=== PATIENT | male | born 1970 | race Two or more races ===

== ENCOUNTER 2018-12-03 21:34 | Emergency (ER) | payer SELFPAY ==
[2018-12-03 22:08] VITALS: BP 154/98; PULSE 120; TEMP 98.4; BMI 29.0
--- NOTE | 2018-12-03 22:11 | PDOC ---
History of Present Illness - General Chief Complaint: Nausea/Vomiting Stated Complaint: SICK Time Seen by Provider: 12/03/18 22:11 Past History - Past Medical History Allergies/Adverse Reactions: Allergies Allergy/AdvReac Type Severity Reaction Status Date / Time No Known Allergies Allergy Verified 12/03/18 22:08 Home Medications: Ambulatory Orders NK [No Known Home Medication] 12/03/18 - Suicide/Smoking/Psychosocial Hx Smoking History: Never smoked Have you smoked in the past 12 months: No Information on smoking cessation initiated: No Hx Alcohol Use: No Drug/Substance Use Hx: No *Physical Exam - Vital Signs Last Vital Signs Temp Pulse Resp BP Pulse Ox 98.4 F 120 H 18 154/98 98 12/03/18 22:06 12/03/18 22:06 12/03/18 22:06 12/03/18 22:06 12/03/18 22:06 Moderate Sedation - Procedure Monitoring Vital Signs: Procedure Monitoring Vital Signs Temperature 98.4 F 12/03/18 22:06 Pulse Rate 120 H 12/03/18 22:06 Respiratory Rate 18 12/03/18 22:06 Blood Pressure 154/98 12/03/18 22:06 O2 Sat by Pulse Oximetry (%) 98 12/03/18 22:06
[2018-12-03] MEDS ORDERED: SODIUM CHLORIDE 0.9% 500 ML INFUS.BAG IV ONE (22:16)
[2018-12-03] MEDS ORDERED: ONDANSETRON 4 MG/2 ML VIAL IVPB ONE (22:17)
--- NOTE | 2018-12-03 22:22 | PDOC ---
History of Present Illness - General History Source: Patient Exam Limitations: No Limitations - History of Present Illness Initial Comments: 12/03/18 22:18 Patient is a 48 year old male with h/o etoh, right leg fx with plate and screews , c/o nausea and vomiting x 5 days. Paitent drinks but has not drank in the past 2 days due to the nausea, and vomiting, intolerate solid or liquids. Has generalized abd pain. Denies hematoemsis, PMHX: as above ALL: NKDA GENERAL/CONSTITUTIONAL: [No fever or chills. No weakness. No weight change.] HEAD, EYES, EARS, NOSE AND THROAT: [No change in vision. No ear pain or discharge. No sore throat.] CARDIOVASCULAR: [No chest pain or shortness of breath.] RESPIRATORY: [No cough, wheezing, or hemoptysis.] GASTROINTESTINAL: (+) nausea, vomiting, (-) diarrhea or constipation. No rectal bleeding.] GENITOURINARY: [No dysuria, frequency, or change in urination.] MUSCULOSKELETAL: [No joint or muscle swelling or pain. No neck or back pain.] SKIN AND BREASTS: [No rash or easy bruising.] NEUROLOGIC: [No headache, vertigo, loss of consciousness, or loss of sensation.] PSYCHIATRIC: [No depression or anxiety.] ENDOCRINE: [No increased thirst. No abnormal weight change.] HEMATOLOGIC/LYMPHATIC: [No anemia, easy bleeding, or history of blood clots.] ALLERGIC/IMMUNOLOGIC: [No hives or skin allergy. No latex allergy.] GENERAL: [The patient is awake, alert, and fully oriented, in mild distress.] HEAD: [Normal with no signs of trauma.] EYES: [Pupils equal, round and reactive to light, extraocular movements intact, sclera anicteric, conjunctiva clear.] ENT: [Ears normal, nares patent, oropharynx clear without exudates. Moist mucous membranes.] NECK: [Normal range of motion, supple without lymphadenopathy, JVD, or masses.] LUNGS: [Breath sounds equal, clear to auscultation bilaterally. No wheezes, and no crackles.] HEART: [Regular rate and rhythm, normal S1 and S2 without murmur, rub.] ABDOMEN: [Soft, tenderness epigastrum, normoactive bowel sounds. No guarding, no rebound. No masses.] EXTREMITIES: [Normal range of motion, no edema. No clubbing or cyanosis. No cords, erythema, or tenderness.] NEUROLOGICAL: [Cranial nerves II through XII grossly intact. Normal speech, normal gait, (+) tremors, ] PSYCH: [Normal mood, normal affect.] SKIN: [Warm, Dry, normal turgor, no rashes or lesions noted.] <Marek Cummings - Last Filed: 12/04/18 04:09> <Debbie Marroquin - Last Filed: 12/04/18 05:03> <Candido Anderson - Last Filed: 12/04/18 05:09> - General Chief Complaint: Nausea/Vomiting Stated Complaint: SICK Time Seen by Provider: 12/03/18 22:11 Past History - Suicide/Smoking/Psychosocial Hx Smoking History: Never smoked Have you smoked in the past 12 months: No Information on smoking cessation initiated: No Hx Alcohol Use: No Drug/Substance Use Hx: No <Marek Cummings - Last Filed: 12/04/18 04:09> <Debbie Marroquin - Last Filed: 12/04/18 05:03> <Candido Anderson - Last Filed: 12/04/18 05:09> - Past Medical History Allergies/Adverse Reactions: Allergies Allergy/AdvReac Type Severity Reaction Status Date / Time No Known Allergies Allergy Verified 12/03/18 22:08 Home Medications: Ambulatory Orders NK [No Known Home Medication] 12/03/18 *Physical Exam - Vital Signs Last Vital Signs Temp Pulse Resp BP Pulse Ox 98.4 F 120 H 18 154/98 98 12/03/18 22:06 12/03/18 22:06 12/03/18 22:06 12/03/18 22:06 12/03/18 22:06 <Marek Cummings - Last Filed: 12/04/18 04:09> - Vital Signs Last Vital Signs Temp Pulse Resp BP Pulse Ox 98.4 F 120 H 18 154/98 98 12/03/18 22:06 12/03/18 22:06 12/03/18 22:06 12/03/18 22:06 12/03/18 22:06 <Debbie Marroquin - Last Filed: 12/04/18 05:03> - Vital Signs Last Vital Signs Temp Pulse Resp BP Pulse Ox 98.4 F 120 H 18 154/98 98 12/03/18 22:06 12/03/18 22:06 12/03/18 22:06 12/03/18 22:06 12/03/18 22:06 <Candido Anderson - Last Filed: 12/04/18 05:09> Moderate Sedation - Procedure Monitoring Vital Signs: Procedure Monitoring Vital Signs Temperature 98.4 F 12/03/18 22:06 Pulse Rate 120 H 12/03/18 22:06 Respiratory Rate 18 12/03/18 22:06 Blood Pressure 154/98 12/03/18 22:06 O2 Sat by Pulse Oximetry (%) 98 12/03/18 22:06 <Marek Cummings - Last Filed: 12/04/18 04:09> - Procedure Monitoring Vital Signs: Procedure Monitoring Vital Signs Temperature 98.4 F 12/03/18 22:06 Pulse Rate 120 H 12/03/18 22:06 Respiratory Rate 18 12/03/18 22:06 Blood Pressure 154/98 12/03/18 22:06 O2 Sat by Pulse Oximetry (%) 98 12/03/18 22:06 <Debbie Marroquin - Last Filed: 12/04/18 05:03> - Procedure Monitoring Vital Signs: Procedure Monitoring Vital Signs Temperature 98.4 F 12/03/18 22:06 Pulse Rate 120 H 12/03/18 22:06 Respiratory Rate 18 12/03/18 22:06 Blood Pressure 154/98 12/03/18 22:06 O2 Sat by Pulse Oximetry (%) 98 12/03/18 22:06 <Candido Anderson - Last Filed: 12/04/18 05:09> ED Treatment Course - LABORATORY CBC & Chemistry Diagram: 12/03/18 23:15 12/03/18 23:15 <Marek Cummings - Last Filed: 12/04/18 04:09> - LABORATORY CBC & Chemistry Diagram: 12/03/18 23:15 12/03/18 23:15 - ADDITIONAL ORDERS Additional order review: Laboratory Results 12/03/18 23:15 Sodium 140 Potassium 3.5 Chloride 98 Carbon Dioxide 28 Anion Gap 15 BUN 15 Creatinine 0.9 Creat Clearance w eGFR > 60 Random Glucose 148 H Calcium 9.5 Total Bilirubin 0.9 AST 56 H ALT 37 Alkaline Phosphatase 67 Total Protein 8.4 H Albumin 4.6 Total Amylase 200 H Lipase 459 H Alcohol, Quantitative 7.2 H 12/03/18 23:15 RBC 4.73 MCV 91.1 MCHC 35.1 RDW 14.3 MPV 8.6 Neutrophils % 81.0 Lymphocytes % 11.4 Monocytes % 7.1 Eosinophils % 0.0 Basophils % 0.5 - RADIOLOGY Radiology Studies Ordered: Category Date Time Status CHEST X-RAY PORTABLE* [RAD] Stat Radiology 12/04/18 00:09 Taken - Medications Given in the ED: ED Medications Discontinued Medications Generic Name Dose Route Start Last Admin Trade Name Freq PRN Reason Stop Dose Admin Chlordiazepoxide HCl 100 mg 12/04/18 04:08 12/04/18 04:42 Librium - PO 12/04/18 04:09 100 mg ONCE ONE Administration Famotidine/Sodium Chloride 20 mg in 50 mls @ 100 mls/hr 12/03/18 22:37 22:41 Pepcid 20 Mg Premixed Ivpb - IVPB 12/03/18 23:06 100 mls/hr ONCE ONE Administration Lorazepam 2 mg 12/03/18 22:16 12/03/18 22:41 Ativan Injection - IVPUSH 12/03/18 22:17 2 mg ONCE ONE Administration Ondansetron HCl 8 mg 12/03/18 22:17 12/03/18 22:41 Zofran Injection IVPB 12/03/18 22:18 8 mg ONCE ONE Administration Sodium Chloride 1,000 ml 12/03/18 22:16 12/03/18 22:41 Normal Saline - IV 12/03/18 22:17 1,000 ml ONCE ONE Administration <Debbie Marroquin - Last Filed: 12/04/18 05:03> - LABORATORY CBC & Chemistry Diagram: 12/03/18 23:15 12/03/18 23:15 - ADDITIONAL ORDERS Additional order review: Laboratory Results 12/03/18 23:15 Sodium 140 Potassium 3.5 Chloride 98 Carbon Dioxide 28 Anion Gap 15 BUN 15 Creatinine 0.9 Creat Clearance w eGFR > 60 Random Glucose 148 H Calcium 9.5 Total Bilirubin 0.9 AST 56 H ALT 37 Alkaline Phosphatase 67 Total Protein 8.4 H Albumin 4.6 Total Amylase 200 H Lipase 459 H Alcohol, Quantitative 7.2 H 12/03/18 23:15 RBC 4.73 MCV 91.1 MCHC 35.1 RDW 14.3 MPV 8.6 Neutrophils % 81.0 Lymphocytes % 11.4 Monocytes % 7.1 Eosinophils % 0.0 Basophils % 0.5 - Medications Given in the ED: ED Medications Discontinued Medications Generic Name Dose Route Start Last Admin Trade Name Alex PRN Reason Stop Dose Admin Chlordiazepoxide HCl 100 mg 12/04/18 04:08 12/04/18 04:42 Librium - PO 12/04/18 04:09 100 mg ONCE ONE Administration Famotidine/Sodium Chloride 20 mg in 50 mls @ 100 mls/hr 12/03/18 22:37 22:41 Pepcid 20 Mg Premixed Ivpb - IVPB 12/03/18 23:06 100 mls/hr ONCE ONE Administration Lorazepam 2 mg 12/03/18 22:16 12/03/18 22:41 Ativan Injection - IVPUSH 12/03/18 22:17 2 mg ONCE ONE Administration Ondansetron HCl 8 mg 12/03/18 22:17 12/03/18 22:41 Zofran Injection IVPB 12/03/18 22:18 8 mg ONCE ONE Administration Sodium Chloride 1,000 ml 12/03/18 22:16 12/03/18 22:41 Normal Saline - IV 12/03/18 22:17 1,000 ml ONCE ONE Administration <Candido Anderson - Last Filed: 12/04/18 05:09> Medical Decision Making - Medical Decision Making 12/03/18 22:18 Patient is a 48 year old male with h/o etoh, right leg fx with plate and screews , c/o nausea and vomiting x 5 days. Paitent drinks but has not drank in the past 2 days due to the nausea, and vomiting, intolerate solid or liquids. Has generalized abd pain. Denies hematoemsis. On exam has tremors. Patient his in withdrawal labs, incl etoh level IVF labs reassess 12/04/18 02:11 Laboratory Tests 12/03/18 12/03/18 23:15 23:15 WBC 4.4 Hgb 15.1 Hct 43.1 Plt Count 128 L Sodium 140 Chloride 98 Carbon Dioxide 28 Anion Gap 15 BUN 15 Creatinine 0.9 Random Glucose 148 H AST 56 H ALT 37 Total Amylase 200 H Lipase 459 H Alcohol, Quantitative 7.[address] 104, NAD, (-) ST-T wave changes Patient in mild distress, remains tachycardic. Noted to have elevated pancreatic enzymes will amdit <Marek Cummings - Last Filed: 12/04/18 04:09> - Medical Decision Making 12/04/18 05:03 Patient Name: MARIA T MEYER THIS IS A PRELIMINARY REPORT FROM [facility] DATE OF SERVICE: 2018-12-04 02:34:48 IMAGES: [id number] EXAM: CT ABDOMEN AND PELVIS WITH CONTRAST No bowel obstruction, colitis, diverticulitis, free fluid or free air. Normal appendix. Unremarkable pancreas and gallbladder. Steatosis liver. Subcentimeter cortical hypodensity right kidney. Small umbilical hernia containing fat. Minimally enlarged prostate. Chronic fracture right posterior rib 11. 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 <Debbie Marroquin - Last Filed: 12/04/18 05:03> *DC/Admit/Observation/Transfer - Discharge Dispostion Decision to Admit order: Yes <Marek Cummings - Last Filed: 12/04/18 04:09> <Debbie Marroquin - Last Filed: 12/04/18 05:03> <Candido Anderson - Last Filed: 12/04/18 05:09> Diagnosis at time of Disposition: Pancreatitis Qualifiers: Chronicity: acute Pancreatitis type: alcohol induced Acute pancreatitis complication: unspecified Qualified Code(s): K85.20 - Alcohol induced acute pancreatitis without necrosis or infection Alcohol withdrawal Qualifiers: Complication of substance-induced condition: uncomplicated Qualified Code(s): F10.230 - Alcohol dependence with withdrawal, uncomplicated - Discharge Dispostion Disposition: HOME Condition at time of disposition: Stable
[2018-12-03] MEDS ORDERED: LORazepam 2 MG/ML SDV VIAL ONE (22:35)
[2018-12-03] MEDS ORDERED: ONDANSETRON 4 MG/2 ML VIAL ONE (22:35)
[2018-12-03] MEDS ORDERED: FAMOTIDINE 20 MG/50 ML IVPB 20 MG/50 ML MG IVPB ONE ×2 (22:35→22:37)
[2018-12-03 23:19] LABS: BASO % 0.5 % (0-2.0); HEMATOCRIT 43.1 % (35.4-49); HEMOGLOBIN 15.1 GM/dL (11.7-16.9); LYMPH % 11.4 % (8-40); MCH 31.9 pg (25.7-33.7); MCHC 35.1 g/dl (32.0-35.9); MEAN CELL VOLUME 91.1 fl (80-96); MEAN PLT VOLUME 8.6 fl (7.5-11.1); MONO % 7.1 % (3.8-10.2); PLATELET COUNT 128 K/MM3 (134-434); RBC 4.73 M/mm3 (4.00-5.60); RDW 14.3 % (11.9-15.9); WHITE BLOOD COUNT 4.4 K/mm3 (4.0-10.0)
[2018-12-03 23:45] LABS: ALBUMIN 4.6 g/dl (3.4-5.0); ALK PHOS 67 U/L (45-117); ANION GAP 15 MMOL/L (8-16); BILIRUBIN,TOTAL 0.9 mg/dL (0.2-1); BLOOD UREA NITROGEN 15 mg/dL (7-18); CALCIUM 9.5 mg/dL (8.5-10.1); CHLORIDE 98 mmol/L (98-107); CO2 28 mmol/L (21-32); CREATININE 0.9 mg/dL (0.55-1.3); GLUCOSE,RANDOM 148 mg/dL (74-106); LIPASE 459 U/L (73-393); POTASSIUM 3.5 mmol/L (3.5-5.1); SGOT/AST 56 U/L (15-37); SGPT/ALT 37 U/L (13-61); SODIUM 140 mmol/L (136-145); TOT PROT 8.4 g/dl (6.4-8.2)
[2018-12-04 01:13] LABS: AMYLASE 200 U/L (25-115)
[2018-12-04] MEDS ORDERED: FOLIC ACID INJECTION - 1 MG, THIAMINE HCL 100 MG, MULTIVIT INJECTION ADULT 10 ML in SOD... IVPB ONE (01:41)
[2018-12-04] MEDS ORDERED: chlordiazePOXIDE HCL 25 MG CAPSULE PO ONE (04:08)
[2018-12-04] MEDS ORDERED: chlordiazePOXIDE HCL 25 MG CAPSULE ONE (04:40)
--- NOTE | 2018-12-04 09:49 | EKG ---
Test Reason : Blood Pressure : / mmHG Vent. Rate : 104 BPM Atrial Rate : 104 BPM P-R Int : 166 ms QRS Dur : 084 ms QT Int : 356 ms P-R-T Axes : 064 044 058 degrees QTc Int : 468 ms SINUS TACHYCARDIA NONSPECIFIC T WAVE ABNORMALITY ABNORMAL ECG NO PREVIOUS ECGS AVAILABLE Confirmed by JUANJOSE BELTRAN MD ([id number]) on 12/04/2018 9:49:01 AM Referred By: Confirmed By:JUANJOSE BELTRAN MD
== END 2018-12-04 05:37 | disposition home or self-care (01) ==
LOC: EDBD → JER 21:34 → UNDOADMIN 12-04 02:14 → JERBED 12-04 02:14
PROC: 3E033GC Introduction of Other Therapeutic Substance into Peripheral Vein, Percutaneous Approach (ICD-10-PCS; principal; 2018-12-03)
PROC: 3E033GC Introduction of Other Therapeutic Substance into Peripheral Vein, Percutaneous Approach (ICD-10-PCS; 2018-12-03)
PROC: 3E033GC Introduction of Other Therapeutic Substance into Peripheral Vein, Percutaneous Approach (ICD-10-PCS; 2018-12-03)
PROC: 3E033NZ Introduction of Analgesics, Hypnotics, Sedatives into Peripheral Vein, Percutaneous Approach (ICD-10-PCS; 2018-12-03)
DX: K85.20 Alcohol induced acute pancreatitis without necrosis or infection (principal); F10.230 Alcohol dependence with withdrawal, uncomplicated; R74.8 Abnormal levels of other serum enzymes; Z87.81 Personal history of (healed) traumatic fracture
CPT/HCPCS: 36415; 71045-TC-FY; 74177-TC; 80053; 80307; 82150; 83690; 85025; 93005; 93010; 99281-25; J7030

== ENCOUNTER 2018-12-04 17:31 | Observation (INO) | payer OTHER ==
[2018-12-04 17:51] VITALS: BMI 29.9
--- NOTE | 2018-12-04 17:51 | PDOC ---
Rapid Medical Evaluation Chief Complaint: Alcohol intoxication Medical Evaluation: Allergies Allergy/AdvReac Type Severity Reaction Status Date / Time No Known Allergies Allergy Verified 12/03/18 22:08 12/04/18 17:47 I have performed a brief in-person evaluation of this patient. The patient presents with a chief complaint of:etoh intoxication, sent to Detox this AM but did not wait for bed placement Pertinent physical exam findings: aLERT , DENIES eTOH INGESTION TODAY - called [facility] and no beds available I have ordered the following: nothing The patient will proceed to the ED for further evaluation. Discharge Disposition - Diagnosis Alcohol dependence with uncomplicated withdrawal - Referrals - Patient Instructions - Post Discharge Activity
--- NOTE | 2018-12-04 19:14 | PDOC ---
History of Present Illness - General Chief Complaint: Alcohol intoxication Stated Complaint: ABD PAIN Time Seen by Provider: 12/04/18 19:11 History Source: Patient - History of Present Illness Initial Comments: 12/04/18 19:23 48 year old male seen int to detox this morning returns with worsening abdominal pain. Patient reports generalized abdominal pain upper quadrant worsen lower quadrant. Denies nausea, vomiting, seizure activity patient reports feeling increased shakiness since hasn't had a drink for 72 hours. Patient was sent to detox this morning patient reports that he waited several hours no bed availability, the patient left detox. 12/04/18 21:48 Past History - Past Medical History Allergies/Adverse Reactions: Allergies Allergy/AdvReac Type Severity Reaction Status Date / Time No Known Allergies Allergy Verified 12/04/18 17:51 Home Medications: Ambulatory Orders NK [No Known Home Medication] 12/03/18 Anemia: No Asthma: No Cancer: No Cardiac Disorders: No CVA: No COPD: No CHF: No Dementia: No Diabetes: No GI Disorders: No Disorders: No HTN: No Hypercholesterolemia: No Liver Disease: No Seizures: No Thyroid Disease: No Other medical history: pancreatitis - Surgical History Orthopedic Surgery: Yes (RIGHT KNEE ) - Suicide/Smoking/Psychosocial Hx Smoking History: Never smoked Have you smoked in the past 12 months: No Information on smoking cessation initiated: No Hx Alcohol Use: Yes Drug/Substance Use Hx: No Substance Use Type: Alcohol Hx Substance Use Treatment: No *Physical Exam - Vital Signs Last Vital Signs Temp Pulse Resp BP Pulse Ox 98.1 F 109 H 18 153/97 100 12/04/18 17:47 12/04/18 17:47 12/04/18 17:47 12/04/18 17:47 12/04/18 17:47 - Physical Exam General Appearance: Yes: Appropriately Dressed Respiratory/Chest: positive: Lungs Clear, Normal Breath Sounds Cardiovascular: positive: Tachycardia Gastrointestinal/Abdominal: positive: Normal Bowel Sounds, Tender (generalized abdominal tenderness) Extremity: positive: Normal Capillary Refill, Normal Inspection, Normal Range of Motion Integumentary: positive: Normal Color, Dry, Warm Neurologic: positive: Fully Oriented, Alert, Normal Mood/Affect Moderate Sedation - Procedure Monitoring Vital Signs: Procedure Monitoring Vital Signs Temperature 98.1 F 12/04/18 17:47 Pulse Rate 109 H 12/04/18 17:47 Respiratory Rate 18 12/04/18 17:47 Blood Pressure 153/97 12/04/18 17:47 O2 Sat by Pulse Oximetry (%) 100 12/04/18 17:47 ED Treatment Course - LABORATORY CBC & Chemistry Diagram: 12/04/18 20:30 12/04/18 20:30 Medical Decision Making - Medical Decision Making 12/04/18 23:36 I spoke to hospitalist pATIENT to receive protonix iv. patient is placed on observation for monitoring. plan for detox . as per Dr. barrow elevated lipase with no CT finding is likely not pancreatitis more like gastritis recommends protonix. i spoke to [facility] 1 male bed available. however patient is placed on observation liekly d/c to detox tomorrow 12/04/18 23:55 12/05/18 00:14 patient signed out to Dr. alvarado/ Dr sotomayor *DC/Admit/Observation/Transfer Diagnosis at time of Disposition: Elevated lipase Alcohol withdrawal Qualifiers: Complication of substance-induced condition: with unspecified complication Qualified Code(s): F10.239 - Alcohol dependence with withdrawal, unspecified - Referrals - Patient Instructions - Post Discharge Activity
[2018-12-04] MEDS ORDERED: chlordiazePOXIDE HCL 25 MG CAPSULE PO ONE (19:22)
[2018-12-04] MEDS ORDERED: FOLIC ACID INJECTION - 1 MG, THIAMINE HCL 100 MG, MULTIVIT INJECTION ADULT 10 ML in SOD... IVPB ONE (19:23)
--- NOTE | 2018-12-04 20:01 | PDOC ---
*Physical Exam - Vital Signs Last Vital Signs Temp Pulse Resp BP Pulse Ox 98.1 F 109 H 18 153/97 100 12/04/18 17:47 12/04/18 17:47 12/04/18 17:47 12/04/18 17:47 12/04/18 17:47 Medical Decision Making - Medical Decision Making 12/04/18 19:56 Patient seen by the advanced practice provider under my direct supervision. Ancillary testing reviewed as necessary. I agree with plan as outlined by the advanced practice provider ASHUTOSH Rueda *DC/Admit/Observation/Transfer Diagnosis at time of Disposition: Alcohol dependence with uncomplicated withdrawal - Referrals - Patient Instructions - Post Discharge Activity
[2018-12-04] MEDS ORDERED: chlordiazePOXIDE HCL 25 MG CAPSULE ONE (20:25)
[2018-12-04] MEDS ORDERED: FAMOTIDINE 20 MG/50 ML IVPB 20 MG/50 ML MG IVPB ONE ×2 (20:26→20:58)
[2018-12-04 21:00] LABS: BASO % 0.4 % (0-2.0); HEMOGLOBIN 15.5 GM/dL (11.7-16.9); LYMPH % 29.6 % (8-40); MCH 31.7 pg (25.7-33.7); MCHC 34.4 g/dl (32.0-35.9); MEAN CELL VOLUME 91.9 fl (80-96); MEAN PLT VOLUME 8.6 fl (7.5-11.1); MONO % 8.1 % (3.8-10.2); NEUT % 60.9 % (42.8-82.8); PLATELET COUNT 125 K/MM3 (134-434); RDW 13.9 % (11.9-15.9); WHITE BLOOD COUNT 4.7 K/mm3 (4.0-10.0)
[2018-12-04 21:08] LABS: ALBUMIN 4.4 g/dl (3.4-5.0); ALK PHOS 64 U/L (45-117); ANION GAP 9 MMOL/L (8-16); BILIRUBIN,TOTAL 1.1 mg/dL (0.2-1); BLOOD UREA NITROGEN 14 mg/dL (7-18); CALCIUM 9.4 mg/dL (8.5-10.1); CHLORIDE 101 mmol/L (98-107); CO2 29 mmol/L (21-32); GLUCOSE,RANDOM 91 mg/dL (74-106); LIPASE 580 U/L (73-393); POTASSIUM 3.5 mmol/L (3.5-5.1); SGOT/AST 37 U/L (15-37); SGPT/ALT 29 U/L (13-61); SODIUM 139 mmol/L (136-145); TOT PROT 8.1 g/dl (6.4-8.2)
[2018-12-04] MEDS ORDERED: LORazepam 2 MG/ML SDV VIAL ONE (22:08)
[2018-12-04] MEDS ORDERED: PANTOPRAZOLE SODIUM 40 MG VIAL IVPB ONE (22:53)
--- NOTE | 2018-12-04 23:02 | PN ---
Teaching Attending Note Name of Resident: Sisi Porter ATTENDING PHYSICIAN STATEMENT I saw and evaluated the patient. I reviewed the resident's note and discussed the case with the resident. I agree with the resident's findings and plan as documented. SUBJECTIVE: Seen and examined; please see resident documentation for further historical information. Patient with a history of EtOH abuse presents from detox after not having a bed for 5 hours; he chose to come back to the ER as his abdomen still hurt. Drinks up to 1L EtOH daily. His symptoms are resolved now and he tells me he just feels a little bloated. Seen in ER yesterday for similar sx; sent to detox. He had a slightly elevated lipase then (again today, neither even 2x the upper limit of normal) with negative imaging. Discussed with Dr. Lawrence; low suspicion for pancreatitis. Placement will be an issue. He wants to stop drinking. Placing on the floor on CIWA protocol. 10 sys ROS done and negative aside from HPI PMH and PSH reviewed FH asked and noncontributory Social hx reviewed Medication list reviewed; reconciliation pending OBJECTIVE: VS, labs, imaging reviewed NAD, AAO, resting comfortably in bed NC AT EOMI PERRLA Mild tenderness, ND, +BS CN2-12 wnl, CIWA ~3, no fnd Normal mood, blunted affect Labs reviewed; lipase elevated but not 2x ULN, etc. Bili 1.1 (0.9) CT reviewed; no pancreatitis from earlier this AM ASSESSMENT AND PLAN: Mr. Donato presents back to the ER complaining of abdominal pain which is nearly resolved after not getting a bed at detox; he has an elevated lipase but no pancreatitis by imaging. He will me monitored for EtOH WD on observation ( ED obs to obs) 1) EtOH Abuse/WD -Thiamine/folate, CIWA protocol, monitor. Positive EtOH level this morning. -Seizure precautions -manager philosophy and social work for placement in detox 2) Elevated Lipase -Likely not pancreatitis; gastritis/esophagitis, etc. can cause mild elevations which can commonly be seen in alcoholism, especially with recent abuse. Monitor abdominal exam, advance diet as tolerated, trend CMP. If somehow he worsens consult GI but he is improving even with his short ER stay. Did discuss with them. INF overnight with LR@100/hr. Pain control with PRN APAP. 3) Elevated bilirubin -0.9 to 1.1; only .1 over the upper limit of normal which isn't necessarily remarkable in an active alcohol abuser with underlying fatty liver disease. Trend CMP. Imaging done earlier this AM on his initial ER visit noted. FENA -LR @100cc/hr overnight -PRN replete -Full Diet -As tolerated Full Code
[2018-12-04] MEDS ORDERED: LACTATED RINGERS SOLUTION 1,000 ML/1,000 ML INFUS.BAG IV SCH (23:30)
--- NOTE | 2018-12-04 23:31 | HP ---
CHIEF COMPLAINT: abdominal pain PCP: HISTORY OF PRESENT ILLNESS: 48 y/o M with significant hx alcohol use (three bottles tequila daily x 25 yrs; last drink "1 week ago" as per pt), who presents to the ED c/o continued abdominal pain over the past day. Yesterday, pt was initially seen in the ED for five day hx of diffuse, generalized abdominal pain a/w multiple episodes of NBNB emesis. Pt had been worked up for pancreatitis, however with tbili 0.9, lipase [address] evidence it was ruled out. His sx were found to be likely 2 /2 alcohol withdrawal, and he was d/c to detox. As per ED staff, he had been accepted to detox however since he had to wait for a bed for five hours, he decided to return to the ED since his abdomen was still hurting. Currently, he states that he feels well and just endorses generalized bloating and mild tremors in his upper extremities. Denies current ROSAS, fever, chills, SOB, chest pain or pressure, or changes in urinary or bowel function. ER course was notable for: (1) IV NS (2) ativan (3) jigna levine Recent Travel: denies PAST MEDICAL HISTORY: as above PAST SURGICAL HISTORY: denies Social History: Smoking: denies Alcohol: three bottles of tequila daily x 25 yrs Drugs: denies Family History: denies Allergies No Known Allergies Allergy (Verified 12/04/18 17:51) HOME MEDICATIONS: Home Medications Medication Instructions Recorded NK [No Known Home Medication] 12/03/18 REVIEW OF SYSTEMS CONSTITUTIONAL: Absent: fever, chills, diaphoresis, generalized weakness, malaise, loss of appetite, weight change HEENT: Absent: rhinorrhea, nasal congestion, throat pain, throat swelling, difficulty swallowing, mouth swelling, ear pain, eye pain, visual changes CARDIOVASCULAR: Absent: chest pain, syncope, palpitations, irregular heart rate, lightheadedness , peripheral edema RESPIRATORY: Absent: cough, shortness of breath, dyspnea with exertion, orthopnea, wheezing, stridor, hemoptysis GASTROINTESTINAL: +abdominal pain Absent: abdominal pain, abdominal distension, nausea, vomiting, diarrhea, constipation, melena, hematochezia GENITOURINARY: Absent: dysuria, frequency, urgency, hesitancy, hematuria, flank pain, genital pain MUSCULOSKELETAL: Absent: myalgia, arthralgia, joint swelling, back pain, neck pain SKIN: Absent: rash, itching, pallor HEMATOLOGIC/IMMUNOLOGIC: Absent: easy bleeding, easy bruising, lymphadenopathy, frequent infections ENDOCRINE: Absent: unexplained weight gain, unexplained weight loss, heat intolerance, cold intolerance NEUROLOGIC: Absent: headache, focal weakness or paresthesias, dizziness, unsteady gait, seizure, mental status changes, bladder or bowel incontinence PSYCHIATRIC: Absent: anxiety, depression, suicidal or homicidal ideation, hallucinations. PHYSICAL EXAMINATION Vital Signs 12/04/18 17:47 Temperature 98.1 F Pulse Rate 109 H Respiratory 18 Rate Blood Pressure 153/97 O2 Sat by Pulse 100 Oximetry (%) GENERAL: Lying down, resting in bed. in NAD HEAD: Normal with no signs of trauma. EYES: Pupils equal, round and reactive to light, extraocular movements intact, sclera anicteric, conjunctiva clear. EARS, NOSE, THROAT: Ears normal, nares patent, oropharynx clear without exudates. Moist mucous membranes. NECK: Normal range of motion, supple LUNGS: Breath sounds equal, clear to auscultation bilaterally. No wheezes, and no crackles. No accessory muscle use. HEART: +tachycardic rate and rhythm, normal S1 and S2 without murmur, rub or gallop. ABDOMEN: Soft, diffusely tender to palpation in all quadrants. no guarding, no rigidity UPPER EXTREMITIES: +with tremor. no asterixis LOWER EXTREMITIES: 2+ pulses, warm, well-perfused. No calf tenderness. No peripheral edema. NEUROLOGICAL: Cranial nerves II-XII intact. able to move upper and lower extremities. 2+ patellar reflexes. PSYCHIATRIC: Cooperative. Good eye contact. SKIN: Warm, dry, normal turgor Laboratory Results - last 24 hr 12/04/18 12/04/18 20:30 20:30 WBC 4.7 RBC 4.90 Hgb 15.5 Hct 45.0 MCV 91.9 MCH 31.7 MCHC 34.4 RDW 13.9 Plt Count 125 L MPV 8.6 Absolute Neuts (auto) 2.9 Neutrophils % 60.9 D Lymphocytes % 29.6 D Monocytes % 8.1 Eosinophils % 1.0 D Basophils % 0.4 Nucleated RBC % 0 Sodium 139 Potassium 3.5 Chloride 101 Carbon Dioxide 29 Anion Gap 9 BUN 14 Creatinine 1.0 Creat Clearance w eGFR > 60 Random Glucose 91 Calcium 9.4 Total Bilirubin 1.1 H AST 37 ALT 29 Alkaline Phosphatase 64 Total Protein 8.1 Albumin 4.4 Lipase 580 H Alcohol, Quantitative < 3.0 TESTING CXR: no acute chest pathology CTAP: 1. thickening of the urinary bladder, cystitis cannot be excluded. 2. diffuse fatty infiltration of the liver with no evidence of acute pathology within the abdomen or pelvis. no pneumoperitoneum, bowel obstruction , or intra- abdominal anbscess. no acute appendicitis or diverticulitis EKG: pending ASSESSMENT/PLAN: 48 y/o M with significant hx alcohol use (three bottles tequila daily x 25 yrs; last drink "1 week ago" as per pt), who presents to the ED c/o continued abdominal pain over the past day. #Abdominal pain, r/o pancreatitis -less likely as pt without CT evidence, tbili 1.1, lipase 580, LFTS wnl, resolving abdominal pain. responsive to PPI -case was d/w Dr. Lawrence - GI, low suspicion -will give IVF LR 100 cc/hr, protonix 40mg IVP qd for dyspepsia in meanwhile -follow CMP #Alcohol withdrawal -current CIWA score 5; minimal withdrawal. will cont to follow -c/w thiamine and folic -librium protocol; ok to use as without transaminitis -can continue detox at ; amenable -sz precautions #F/E/N IV LR 100 cc/hr continue to follow lytes full liq diet, advance as tolerated #PPX DVT: early ambulation, SCD's. expect short stay GI: Protonix #Dispo observation; for likely transfer to detox tomorrow . pending bed . will need to d/w bilingual patient support caseworker, SW Visit type - Emergency Visit Emergency Visit: Yes ED Registration Date: 12/04/18 Care time: The patient presented to the Emergency Department on the above date and was hospitalized for further evaluation of their emergent condition. - New Patient This patient is new to me today: Yes Date on this admission: 12/05/18 - Critical Care Critical Care patient: No
[2018-12-04] MEDS ORDERED: FOLIC ACID 1 MG TABLET (FP) PO ONE (23:40)
[2018-12-04] MEDS ORDERED: chlordiazePOXIDE HCL 25 MG CAPSULE PO PRN (23:49)
[2018-12-05] MEDS ORDERED: FOLIC ACID 1 MG TABLET (FP) ONE (00:29)
[2018-12-05] MEDS ORDERED: PANTOPRAZOLE SODIUM 40 MG/100 ML BAG IVPB ONE (00:29)
[2018-12-05] MEDS ORDERED: chlordiazePOXIDE HCL 25 MG CAPSULE ONE ×2 (07:43→12:12)
[2018-12-05] MEDS: chlordiazePOXIDE HCL 25 MG CAPSULE PO SCH ×2 (07:47→12:16)
[2018-12-05] MEDS ORDERED: PANTOPRAZOLE SODIUM 40 MG VIAL IVPUSH SCH (10:00)
[2018-12-05] MEDS ORDERED: THIAMINE HCL 100 MG TABLET (FP) PO SCH (10:00)
[2018-12-05 10:11] VITALS: BP 150/80; PULSE 91; TEMP 98.1
[2018-12-05 11:35] LABS: ALBUMIN 3.8 g/dl (3.4-5.0); ALK PHOS 56 U/L (45-117); ANION GAP 9 MMOL/L (8-16); BILIRUBIN,TOTAL 1.1 mg/dL (0.2-1); BLOOD UREA NITROGEN 10 mg/dL (7-18); CALCIUM 8.6 mg/dL (8.5-10.1); CHLORIDE 100 mmol/L (98-107); CO2 29 mmol/L (21-32); CREATININE 0.9 mg/dL (0.55-1.3); GLUCOSE,RANDOM 96 mg/dL (74-106); POTASSIUM 3.2 mmol/L (3.5-5.1); SGOT/AST 33 U/L (15-37); SGPT/ALT 28 U/L (13-61); SODIUM 138 mmol/L (136-145)
[2018-12-05 12:05] LABS: MAGNESIUM 1.8 mg/dL (1.8-2.4); PHOSPHOROUS 2.7 mg/dL (2.5-4.9)
[2018-12-05] MEDS ORDERED: PROCHLORPERAZINE MALEATE 5 MG TABLET PO PRN (12:27)
--- NOTE | 2018-12-05 12:36 | PN ---
Teaching Attending Note Name of Resident: Jose J Evans ATTENDING PHYSICIAN STATEMENT I saw and evaluated the patient. I reviewed the resident's note and discussed the case with the resident. I agree with the resident's findings and plan as documented. SUBJECTIVE: no fever or chills . mild abd pain, no OSB. no PC. was able to eat breakfast ( full fluids ). OBJECTIVE: disheveled, ANd , awake, let , cooperative, aware of his condition . MMM, no nystagmus . no facial droop. round pupils, reactive to light , equal. Cv: RRR. no MRG lungs: CTAB Ext : no edema on LE , bony protrusion on R hernandez ( old Fx ) . No erythema, no tenderness. no tremor in hands Abd: obese, soft, NT, ND , N LBS ASSESSMENT AND PLAN: 48 y/o man with h/o Alcohol abuse, who presented with N/V/abd pain.he was accepted to [facility] but did not want to wait for a bed . 1- N/V/Abd pain: due to alcohol intoxication , with possible gastritis . no clinical or radiological evidence of acute pancreatitis. CT 12/04 was reviewed. - change PPI to po - GI f/u as outpt - upgrade diet - can use compazine for nausea. Avoid reglan and zofran. due to prolonged QTC on most recent EKG 2- ETOH abuse and uncomplicated Withdrawal : - cont librium protocol - cont thiamine - add folate - received thiamine iv in Er, and has no signs of Wernicke's 3- Mild elevation in BP, could be due to withdrawal. monitor . - will need f/u as out pt 4- dispo : will contact [facility] for transfer for detox
--- NOTE | 2018-12-05 13:58 | DS ---
Physical Exam: SUBJECTIVE: Patient seen and examined at bedside this morning. Patient is a 48 year old male with significant history of EtOH abuse, presented with diffuse abdominal pain for 5 days. This was accompanied by nausea and NBNB vomiting that resolved 2 days ago. As per patient, his last drink was 3 days ago. He has minimal hand tremors, but no sweating, hallucinations, seizures. He denies fever , chills, headache, chest pain, SOB, constipation, diarrhea, urinary symptoms. OBJECTIVE: Vital Signs Period Temp Pulse Resp BP Sys/Taylor Pulse Ox Last 24 Hr 98.0 F-98.1 F 91-109 18-20 124-153/80-97 96-100 PHYSICAL EXAM GENERAL: The patient is awake, alert, and fully oriented, in no acute distress. HEAD: Normal with no signs of trauma. EYES: PERRLA, EOMI, sclera anicteric, conjunctiva clear. ENT: Ears normal, nares patent, oropharynx clear without exudates, moist mucous membranes. NECK: Trachea midline, full range of motion, supple. LUNGS: Breath sounds equal, clear to auscultation bilaterally. HEART: Regular rate and rhythm, S1, S2 without murmur, rub or gallop. ABDOMEN: Soft, nontender, nondistended, normoactive bowel sounds. EXTREMITIES: 2+ pulses, warm, well-perfused, no edema. NEUROLOGICAL: Cranial nerves II through XII grossly intact. Normal speech, gait not observed. Motor strength 5/5, sensation intact. Able to do FTNT. PSYCH: Normal mood, normal affect. SKIN: Warm, dry, normal turgor, no rashes or lesions noted. LABS Laboratory Results - last 24 hr 12/04/18 12/04/18 12/05/18 20:30 20:30 09:58 WBC 4.7 RBC 4.90 Hgb 15.5 Hct 45.0 MCV 91.9 MCH 31.7 MCHC 34.4 RDW 13.9 Plt Count 125 L MPV 8.6 Absolute Neuts (auto) 2.9 Neutrophils % 60.9 D Lymphocytes % 29.6 D Monocytes % 8.1 Eosinophils % 1.0 D Basophils % 0.4 Nucleated RBC % 0 Sodium 139 138 Potassium 3.5 3.2 L Chloride 101 100 Carbon Dioxide 29 29 Anion Gap 9 9 BUN 14 10 Creatinine 1.0 0.9 Creat Clearance w eGFR > 60 > 60 Random Glucose 91 96 Calcium 9.4 8.6 Phosphorus 2.7 Magnesium 1.8 Total Bilirubin 1.1 H 1.1 H AST 37 33 ALT 29 28 Alkaline Phosphatase 64 56 Total Protein 8.1 7.0 Albumin 4.4 3.8 Lipase 580 H Alcohol, Quantitative < 3.0 HOSPITAL COURSE: Date of Admission:12/04/18 Date of Discharge: 12/05/18 Patient is a 48 year old male with significant history of alcohol use, presented with diffuse abdominal pain, with nausea and vomiting that started 5 days ago. Yesterday, patient was seen at the ED, and was noted to have elevated Tbili and lipase. CT scan of the belly was done which was negative of any concerns. He was sent to [facility] yesterday but came back to the ED because he could not wait. He was given banana bag and was started on Librium protocol. Blood work was done and GI was consulted. Of note, patient had elevated QTc, and was given compazine for nausea. He was discharged back to [facility] to continue rehab with instructions to follow-up with PCP and GI. Minutes to complete discharge: 40 Discharge Summary Reason For Visit: ALCOHOL DEPENDENCE WITH UNCOMPLICATED WITHDRAWAL Current Active Problems Alcohol withdrawal (Acute) Elevated lipase (Acute) Alcohol dependence with uncomplicated withdrawal (Chronic) Condition: Stable - Instructions Diet, Activity, Other Instructions: Your visit You were admitted to the hospital because you had belly pain and vomiting. This was likely caused by drinking too much alcohol. CAT scan of your belly was done which was negative of any concerns. It is very important that you completely stop drinking alcohol. Continuing to drink alcohol can lead to worsening symptoms and health problems including liver failure and even . You will be sent to [facility] to complete detox. Medications Take the following medications as prescribed: 1. Compazine 5mg every 8 hours as needed for nausea/vomiting. 2. Protonix 40mg daily. 3. Folic acid 1 mg daily. 4. Thiamine 100mg daily. Follow-up -Follow-up with your primary care doctor within 1 week. You may call the resident medical clinic at [facility] at [phone] to schedule an appointment. -Follow-up with the wool tamper (Dr. Lawrence) within 1 week. Call the office to schedule an appointment. Additional info Call 911 or go to the ED if you have worsening fever, chills, headache, dizziness, nausea/vomiting, loss of consciousness, seizures, jaundice, belly pain, dark or bloody stools, or any new concerns noted. avoid reglan and zofran due to prolonged QTc continue alcohol detox at [facility] Referrals: [facility] [place] [Provider Group] - 1 Week Hermes Lawrence MD [Staff Physician] - 1 Week Disposition: TRANSFER ACUTE CARE/OTHER HOSP - Home Medications Comprehensive Discharge Medication List: Ambulatory Orders Folic Acid - 1 mg PO DAILY tablet 12/05/18 Pantoprazole Sodium [Protonix -] 40 mg PO DAILY tablet.ec 12/05/18 Prochlorperazine Maleate [Compazine] 5 mg PO Q8H #15 tablet 12/05/18 Thiamine HCl [Vitamin B1 -] 100 mg PO DAILY tablet 12/05/18 This patient is new to me today: Yes Date on this admission: 12/05/18 Emergency Visit: Yes ED Registration Date: 12/04/18 Care time: The patient presented to the Emergency Department on the above date and was hospitalized for further evaluation of their emergent condition. Critical Care patient: No - Discharge Referral Referred to [facility] Med P.C.: No
--- NOTE | 2018-12-05 18:12 | EKG ---
Test Reason : Blood Pressure : / mmHG Vent. Rate : 089 BPM Atrial Rate : 089 BPM P-R Int : 178 ms QRS Dur : 084 ms QT Int : 390 ms P-R-T Axes : 062 039 050 degrees QTc Int : 474 ms NORMAL SINUS RHYTHM NORMAL ECG Confirmed by MD GENESIS, YASSINE ([id number]) on 12/05/2018 6:12:07 PM Referred By: Confirmed By:YASSINE HURTADO MD
[2018-12-06] MEDS ORDERED: chlordiazePOXIDE HCL 25 MG CAPSULE PO SCH (05:00)
[2018-12-06] MEDS ORDERED: FOLIC ACID 1 MG TABLET (FP) PO SCH (10:00)
[2018-12-06] MEDS ORDERED: PANTOPRAZOLE 40 MG TABLET (FP) PO SCH (10:00)
[2018-12-07] MEDS ORDERED: chlordiazePOXIDE 5 MG CAPSULE PO SCH (05:00)
[2018-12-08] MEDS ORDERED: chlordiazePOXIDE HCL 10 MG CAPSULE PO SCH (05:00)
== END 2018-12-05 14:20 | disposition other institution (70) ==
LOC: EDBD → JER 17:31 → JERBED 23:39 → EDBD 23:39
PROVIDERS: ADMIT Internal Medicine; ATTEND Internal Medicine
PROC: 3E033NZ Introduction of Analgesics, Hypnotics, Sedatives into Peripheral Vein, Percutaneous Approach (ICD-10-PCS; principal; 2018-12-04)
PROC: 3E0337Z Introduction of Electrolytic and Water Balance Substance into Peripheral Vein, Percutaneous Approach (ICD-10-PCS; 2018-12-04)
PROC: 3E033GC Introduction of Other Therapeutic Substance into Peripheral Vein, Percutaneous Approach (ICD-10-PCS; 2018-12-04)
DX: F10.230 Alcohol dependence with withdrawal, uncomplicated (principal); R74.8 Abnormal levels of other serum enzymes; E80.7 Disorder of bilirubin metabolism, unspecified; R10.84 Generalized abdominal pain; Z86.79 Personal history of other diseases of the circulatory system
CPT/HCPCS: 36415; 80053; 80307; 83690; 83735; 84100; 85025; 93005; 93010; 96365; 96366; 96368; 96375; 96376; 99284-25; G0378; J7030